=== PATIENT | male | born 1965 | race Caucasian/White ===

== ENCOUNTER 2017-05-18 18:30 | Emergency (ER) | payer SELFPAY ==
[~2017-05-18] VITALS: Ht 170.2 cm; Wt 65.6 kg
[~2017-05-18 18:30] MED LIST: 1-ME1LIQ PO; METO50CR PO; NEXI40CA PO; ZOFR4TAB3 SL
[2017-05-18 19:16] VITALS: BP 142/89; PULSE 88; RESP 16; TEMP 98.7; O2SAT 99
[2017-05-18] MEDS ORDERED: METO50TA11 PO (19:42)
[2017-05-18] MEDS ORDERED: BACT800T5 PO (19:43)
[2017-05-18] MEDS ORDERED: CEPH-460 PO (19:43)
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
[2017-05-18] MEDS ORDERED: CEPHALEXIN MONOHYDRATE 500 MG CAP PO ONE (19:45)
[2017-05-18] MEDS ORDERED: SULFAMETHOXAZOLE-TRIMETHOPRIM DS 800-160 MG TAB PO ONE (19:45)
== END 2017-05-18 19:59 | disposition home or self-care (01) ==
LOC: PHED 18:30 → PHEFT 19:59
DX: L03.211 Cellulitis of face (principal); I10 Essential (primary) hypertension; G47.30 Sleep apnea, unspecified; Z86.79 Personal history of other diseases of the circulatory system; Z87.19 Personal history of other diseases of the digestive system; Z87.39 Personal history of other diseases of the musculoskeletal system and connective tissue
CPT/HCPCS: 99284

== ENCOUNTER 2017-05-21 12:00 | Emergency (ER) | payer SELFPAY ==
[~2017-05-21 12:00] MED LIST changes: -1-ME1LIQ PO; +BACT800T5 PO; +CEPH-460 PO; +METO1TAB9 PO; -METO50CR PO; -NEXI40CA PO; -ZOFR4TAB3 SL
[2017-05-21 12:06] VITALS: BP 156/90; PULSE 104; RESP 20; TEMP 98.1; O2SAT 100
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
== END 2017-05-21 12:46 | disposition home or self-care (01) ==
LOC: PHED 12:00
DX: L08.9 Local infection of the skin and subcutaneous tissue, unspecified (principal); I10 Essential (primary) hypertension
CPT/HCPCS: 99282

== ENCOUNTER 2017-06-15 09:49 | Emergency (ER) | payer SELFPAY ==
[~2017-06-15] VITALS: Ht 167.6 cm; Wt 63.0 kg
[2017-06-15 09:51] VITALS: BP 168/97; PULSE 100; RESP 16; TEMP 99.1; O2SAT 99
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
[2017-06-15] MEDS ORDERED: CLOT10TR PO (10:32)
[2017-06-15] MEDS ORDERED: SULF1SOL4 EACH EYE (10:32)
[2017-06-15 10:41] LABS: AUTOMATED NEUTROPHIL # 2.3 TH/MM3 (1.8-7.7); BASOPHIL % 0.5 % (0.0-2.0); EOSINOPHIL # 0.2 TH/MM3 (0-0.4); EOSINOPHIL % 4.8 % (0.0-4.0); HEMATOCRIT 39.1 % (39.0-51.0); HEMO FLAGS DIFF FINAL; LYMPH % 10.9 % (9.0-44.0); LYMPHOCYTE # 0.4 TH/MM3 (1.0-4.8); MEAN CELL VOLUME 94.3 FL (80.0-100.0); MEAN CORPUSCULAR HEMOGLOBIN 31.4 PG (27.0-34.0); MEAN CORPUSCULAR HGB CONC 33.3 % (32.0-36.0); MONO % 17.2 % (0.0-8.0); NEUT % 66.6 % (16.0-70.0); PLATELET COUNT 141 TH/MM3 (150-450); RED BLOOD COUNT 4.15 MIL/MM3 (4.50-5.90); RED CELL DISTRIBUTION WIDTH 11.8 % (11.6-17.2); WHITE BLOOD COUNT 3.5 TH/MM3 (4.0-11.0)
[2017-06-15 10:45] LABS: CHLORIDE 100 MEQ/L (98-107); POTASSIUM 3.7 MEQ/L (3.5-5.1); SODIUM (NA) 131 MEQ/L (136-145)
[2017-06-15 10:49] LABS: ANION GAP 8 MEQ/L (5-15); BICARBONATE 22.8 MEQ/L (21.0-32.0); BLOOD UREA NITROGEN 8 MG/DL (7-18)
[2017-06-15 10:52] LABS: ALT (GPT) 37 U/L (12-78); AST (GOT) 72 U/L (15-37)
[2017-06-15 10:53] LABS: GLOMERULAR FILTRATION RATE 95 ML/MIN (>89)
[2017-06-15 10:54] LABS: TOTAL BILIRUBIN ADULT 0.6 MG/DL (0.2-1.0)
[2017-06-15 10:55] LABS: ALKALINE PHOSPHATASE 288 U/L (45-117)
== END 2017-06-15 11:32 | disposition home or self-care (01) ==
LOC: PHED 09:49
DX: H10.33 Unspecified acute conjunctivitis, bilateral (principal); B37.0 Candidal stomatitis; R63.4 Abnormal weight loss
CPT/HCPCS: 80053; 84443; 85025; 99283

== ENCOUNTER 2017-06-28 04:49 | Emergency (ER) | payer SELFPAY ==
[~2017-06-28] VITALS: Ht 167.6 cm; Wt 63.5 kg
[~2017-06-28 04:49] MED LIST changes: -BACT800T5 PO; -CEPH-460 PO; +CLOT10TR PO; +SULF1SOL4 EACH EYE
[2017-06-28 04:55] VITALS: BP 173/106; PULSE 109; RESP 20; TEMP 97.7; O2SAT 99
[2017-06-28] MEDS ORDERED: NEXI40CA PO (05:19)
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
[2017-06-28] MEDS ORDERED: DOXY100C PO (05:41)
[2017-06-28] MEDS ORDERED: BACT800T5 PO (05:41)
[2017-06-28] MEDS ORDERED: DOXYCYCLINE HYCLATE 100 MG CAP PO ONE (05:45)
[2017-06-28] MEDS ORDERED: SULFAMETHOXAZOLE-TRIMETHOPRIM DS 800-160 MG TAB PO ONE (05:45)
[2017-06-28] MEDS ORDERED: PERC5TAB12 PO (05:46)
[2017-06-28 05:57] VITALS: BP 165/89; PULSE 95; RESP 18; O2SAT 98
== END 2017-06-28 05:55 | disposition home or self-care (01) ==
LOC: PHED 04:49
DX: N48.22 Cellulitis of corpus cavernosum and penis (principal); I10 Essential (primary) hypertension; Z79.899 Other long term (current) drug therapy
CPT/HCPCS: 99284